=== PATIENT | female | born 1975 | race Caucasian/White ===

== ENCOUNTER → 2020-06-02 18:35 | Outpatient (CLI) | payer BC, SELFPAY ==
[2020-06-02 18:58] LABS: Basophils # 0.1 K/mm3 (0-0.2); Basophils % 0.5 % (0.1-2.0); Eosinophils # 0.1 K/mm3 (0.0-0.4); Eosinophils % 0.9 % (0.1-12.0); Hematocrit 47.8 % (37.0-47.0); Hemoglobin 15.3 g/dL (12.2-16.2); Lymphocytes % 35.3 % (10-50); Mean Corpuscular HGB Conc 32.1 g/dL (31.8-35.4); Mean Corpuscular Hemoglobin 27.3 pg (27.0-31.2); Mean Corpuscular Volume 84.9 fl (81-99); Mean Platelet Volume 8.1 fl (7.4-10.4); Monocytes # 0.2 K/mm3 (0.1-1.0); Monocytes % 2.6 % (1.7-9.3); Neutrophils # 5.1 K/mm3 (1.8-7.8); Neutrophils % 60.7 % (37.0-80.0); Platelet Count 382 K/mm3 (142-424); Red Blood Count 5.63 M/mm3 (4.20-5.40); Red Cell Distribution Width 13.8 % (11.5-17.5); White Blood Count 8.5 K/mm3 (4.8-10.8)
[2020-06-02 19:13] LABS: Alanine Aminotransferase 21 U/L (12-78); Albumin Level 4.6 g/dl (3.5-5.0); Albumin/Globulin Ratio 1.6 (1.1-1.8); Alkaline Phosphatase 98 U/L (38-126); Anion Gap 13.8 mEq/L (5-15); Aspartate Amino Transferase 26 U/L (14-36); Bilirubin,Total 0.6 mg/dl (0.2-1.3); Blood Urea Nitrogen 12 mg/dl (7-17); Calcium 9.7 mg/dl (8.4-10.2); Carbon Dioxide 27 mmol/L (22.0-30.0); Chloride 102 mmol/L (98-107); Chol/HDL Ratio 4.4 (1-3.5); Cholesterol 180 mg/dl (140-200); Estimated Glomerular Filt Rate 78 ml/min (>60); GFR (African American) 95 ML/MIN (>60); Globulin 2.8 g/dL (1.3-3.2); Glucose 124 mg/dl (74-100); HDL Cholesterol 41 mg/dl (40-60); Potassium 3.8 mmoL/L (3.5-5.1); Sodium 139 mmol/L (136-145); Total Protein,Serum 7.4 g/dl (6.3-8.2); Triglycerides 154 mg/dl (30-150); VLDL Cholesterol 31 mg/dL (0-40)
[2020-06-02 19:29] LABS: 25-OH Vitamin D, Total 18.4 ng/mL (30-100)
[2020-06-02 19:43] LABS: Thyroid Stimulating Hormone 0.58 uIU/mL (0.465-4.68)
== END ==
PROVIDERS: Visit Provider Emergency Medicine
DX: Z00.00 Encounter for general adult medical examination without abnormal findings (principal); R53.83 Other fatigue; E55.9 Vitamin D deficiency, unspecified; Z72.0 Tobacco use; Z79.899 Other long term (current) drug therapy
CPT/HCPCS: 80053; 80061; 82306; 84436; 84443; 85025

== ENCOUNTER → 2020-07-05 09:44 | Outpatient (CLI) | payer BC, SELFPAY | PROVIDERS: PCP Emergency Medicine; Visit Provider Emergency Medicine | DX: Z20.822 Contact with and (suspected) exposure to COVID-19 (principal); U07.1 COVID-19 | CPT/HCPCS: U0003 ==

== ENCOUNTER → 2020-07-05 14:04 | Outpatient (CLI) | payer BC, SELFPAY | PROVIDERS: Visit Provider Emergency Medicine | DX: R11.2 Nausea with vomiting, unspecified (principal) ==

== ENCOUNTER → 2020-09-19 13:40 | Outpatient (CLI) | payer SELFPAY ==
[2020-09-19 14:35] LABS: Amphetamine/Metha Screen,Urine Negative ng/ml (<1000); Barbiturates Screen,Urine Negative ng/ml (<200)
[2020-09-19 14:36] LABS: Benzodiazepines Screen,Urine Negative ng/ml (<200)
[2020-09-19 14:37] LABS: Cannabinoid Screen,Urine Negative ng/ml (<50); Cocaine Screen,Urine Negative ng/ml (<300)
[2020-09-19 14:38] LABS: Methadone Screen,Urine Negative ng/ml (<300)
[2020-09-19 14:41] LABS: Opiate Screen,Urine Negative ng/ml (<300)
[2020-09-19 14:42] LABS: Phencyclidine Screen,Urine Negative ng/ml (<25)
== END ==
PROVIDERS: Visit Provider Emergency Medicine
DX: Z79.899 Other long term (current) drug therapy (principal)
CPT/HCPCS: 80305

== ENCOUNTER 2021-01-16 09:38 | Emergency (ER) | payer BC, SELFPAY ==
[2021-01-16 09:39] VITALS: BP 114/58; PULSE 77; RESP 16; TEMP 36.8; O2SAT 100; BMI 35.7
--- NOTE | 2021-01-16 09:41 | CT_ITS ---
PROCEDURE: CT ANGIO HEAD CLINICAL INDICATION: headache COMPARISON: CT CT HEAD/BRAIN WO CON from 01/16/2021 TECHNIQUE: IV Contrast: 100ML Isovue [address] brain followed by CT angiography of the head with multiplanar, MIP, and 3D reformations. All measurements of carotid stenosis are performed according to NASCET criteria. Dose modulation, automated exposure control, and/or iterative reconstruction were used for dose reduction. FINDINGS: There is no space-occupying mass or abnormal enhancement.There is no evidence of hemorrhage. Anterior Circulation: Both supraclinoid ICAs bifurcate into normal anterior and middle cerebral arteries without any significant stenosis, aneurysm, or other abnormality. Anterior additional: Posterior circulation: Both vertebral arteries form a normal caliber basilar trunk that proceeds to terminate in paired superior cerebellar and posterior cerebral arteries bilaterally without any significant stenosis, aneurysm, or other abnormality. Posterior additional: Venous: The major intracranial venous structures enhance normally. There is a small filling defect within the left transverse sinus at the junction of the sigmoid sinus and may be related to an arachnoid granulation. This filling defect is smooth measuring 6 mm not typical for thrombus. No other significant findings are noted. IMPRESSION: Negative CTA of the brain. Small filling defect in the transverse sinus on the left distally and may be due to an arachnoid granulation Dictated by: Rudolph Umaña MD 01/16/2021 10:35 Rudolph Umaña MD in [facility] 01/16/2021 10:35
--- NOTE | 2021-01-16 09:41 | CT_ITS ---
PROCEDURE: CT HEAD/BRAIN WO CON CLINICAL INDICATION: headache Severe headache COMPARISON: No exams were available for comparison TECHNIQUE: Axial images obtained. All CT scans at the facility use one or more dose reduction, viz: automated exposure control, ma/kV adjustment per patient size (including targeted exams where dose is matched to indication, i.e. head), or iterative reconstruction technique. FINDINGS: No midline shift, mass effect, intracranial hemorrhage, hydrocephalus, or extra-axial fluid collection is evident. The calvarium has an unremarkable appearance. No mastoid effusion. No sinus air-fluid level. IMPRESSION: No acute intracranial finding Dictated by: Rudolph Umaña MD 01/16/2021 10:23 Rudolph Umaña MD in [facility] 01/16/2021 10:23
--- NOTE | 2021-01-16 09:41 | CT_ITS ---
PROCEDURE: CT ANGIO NECK CLINICAL INDICATION: headache COMPARISON: No exams were available for comparison TECHNIQUE: CT angiography of the neck with multiplanar and 3D MIP reformations. Dose modulation, automated exposure control, and/or iterative reconstruction were used for dose reduction. All measurements of carotid stenosis are performed according to NASCET criteria. Contrast: 100ml Isouve 370. FINDINGS: AORTIC ARCH: Arch Anatomy: There is a normal branching anatomy of the aortic arch. Carotid Arteries: Carotid: The common carotid and cervical internal carotid arteries are patent and unremarkable without any significant stenosis or other abnormality. Vertebral Arteries: Both vertebral arteries are patent and unremarkable throughout their cervical portions, without any significant stenosis or other abnormality Lungs: The visualized lung apices are clear.</choice><choice name= emphysema >Emphysematous changes are present at the lung apices. Thyroid: The visualized thyroid gland is unremarkable. Bones: The cervical spine is unremarkable. There are few scattered cervical lymph nodes. IMPRESSION: Negative CTA of the neck. Dictated by: Rudolph Umaña MD 01/16/2021 10:28 Rudolph Umaña MD in [facility] 01/16/2021 10:28
--- NOTE | 2021-01-16 10:00 | PC.NURSE ---
PT TO CT
--- NOTE | 2021-01-16 10:07 | [facility].EDGENADL ---
ED Disposition Clinical Impression: Occipital headache Migraine Qualifiers: Migraine type: unspecified Status migrainosus presence: without status migrainosus Intractability: not intractable Qualified Code(s): G43.909 - Migraine, unspecified, not intractable, without status migrainosus Disposition: Home, Self-Care Condition on Discharge: Good Instructions: DI for Migraine, DI for Occipital Neuralgia Additional Instructions: You have been evaluated for posterior headache, likely due to migraine. Take all medications as prescribed. Avoid changes in sleep, diet. please follow-up with your primary care doctor within 1 to 2 days for symptom recheck. Return to the emergency department at once for any new or worsening symptoms. Referrals: Dickson Viera MD [Primary Care Provider] - Time of Disposition: 13:05 - Critical Care Critical Care Time: No Attestation: On 01/16/21, the high probability of a clinically significant, sudden or life threatening deterioration of the following system(s) required my full and direct attention, intervention and personal management. The time I documented below is in addition to time spent performing reported procedures but includes the following listed in this critical care notation. Medical Decision Making - Medical Records Medical records reviewed: Yes: I reviewed the patient's medical records. - Steven Inquiry Pt receiving controlled substance: No Vital Signs: 01/16/21 09:39 01/16/21 10:49 01/16/21 10:50 Temperature 98.3 F Temperature Source Oral Pulse Rate 71 77 Pulse Rate [Right] 77 Respiratory Rate 16 Blood Pressure 102/65 L Blood Pressure [Right Arm] 114/58 L Blood Pressure Mean 75 Blood Pressure Mean [Right Arm] 76 02 Sat by Pulse Oximetry 100 98 99 Oxygen Delivery Method Room Air - Lab Data Lab Results 01/16/21 10:00: WBC 6.9, RBC 5.54 H, Hgb 14.9, Hct 46.3, MCV 83.7, MCH 27.0, MCHC 32.2, RDW 13.2, Plt Count 323, MPV 7.8, Neut % (Auto) 58.6, Lymph % (Auto) 34.2, [place] % (Auto) 4.1, Eos % (Auto) 1.4, Baso % (Auto) 1.7, Neut # (Auto) 4.0, Lymph # (Auto) 2.4, [place] # (Auto) 0.3, Eos # (Auto) 0.1, Baso # (Auto) 0.1, ESR 16 01/16/21 10:00: Sodium 141, Potassium 4.2, Chloride 106, Carbon Dioxide 27, Anion Gap 12.2, BUN 15, Creatinine 0.80, Estimated Creat Clear 114, Estimated GFR 78, Est GFR ( Amer) 94, Glucose 95, Calcium 9.3, Total Bilirubin 0.6, AST 28, ALT 21, Alkaline Phosphatase 108, C-Reactive Protein 6.1 H, Total Protein 7.2, Albumin 4.4, Globulin 2.8, Albumin/Globulin Ratio 1.6 Result diagrams: 01/16/21 10:00 01/16/21 10:00 Orders (Tests/Meds): ED MEDICATIONS Generic Name Dose Route Start Last Admin Trade Name Freq PRN Reason Stop Dose Admin Sodium Chloride 10 ml 01/16/21 11:16 Sodium Chloride 0.9% 10ml Vial IV 02/15/21 11:15 NEEDED PRN to Dilute Lorazepam inj Discontinued Medications Generic Name Dose Route Start Last Admin Trade Name Freq PRN Reason Stop Dose Admin Dexamethasone Sodium Phosphate 10 mg 01/16/21 10:24 01/16/21 10:44 Dexamethasone 4mg/Ml 1ml Vial IV 01/16/21 10:25 10 mg ONCE ONE Administration Hydroxyzine Pamoate 25 mg 01/16/21 10:52 01/16/21 10:59 Hydroxyzine Pamoate 25mg Capsule PO 01/16/21 10:53 25 mg ONCE ONE Administration Iopamidol 100 ml 01/16/21 10:14 01/16/21 10:15 Iopamidol-370 (76%);100ml Bottle IV 01/16/21 10:15 100 ml ONCE ONE Administration Lorazepam 0.5 mg 01/16/21 11:16 01/16/21 11:35 Lorazepam 2mg/Ml Vial IV 01/16/21 11:17 0.5 mg ONCE ONE Administration Sodium Chloride 10 ml 01/16/21 10:14 01/16/21 10:15 Sodium Chloride 0.9% 10ml Syr (Rad Only) IV 01/16/21 10:15 10 ml ONCE ONE Administration Sodium Chloride 40 ml 01/16/21 10:14 01/16/21 10:15 0.9 % Sodium Chloride 50 Ml Vial IV 01/16/21 10:15 40 ml ONCE ONE Administration - CT Data CT Scan: Head Time Received: 10:[address] Reviewed: Yes:
[2021-01-16 10:08] LABS: Basophils # 0.1 K/mm3 (0-0.2); Basophils % 1.7 % (0.1-2.0); Eosinophils # 0.1 K/mm3 (0.0-0.4); Eosinophils % 1.4 % (0.1-12.0); Hematocrit 46.3 % (37.0-47.0); Hemoglobin 14.9 g/dL (12.2-16.2); Lymphocytes # 2.4 K/mm3 (0.7-4.5); Lymphocytes % 34.2 % (10-50); Mean Corpuscular HGB Conc 32.2 g/dL (31.8-35.4); Mean Corpuscular Volume 83.7 fl (81-99); Mean Platelet Volume 7.8 fl (7.4-10.4); Monocytes # 0.3 K/mm3 (0.1-1.0); Monocytes % 4.1 % (1.7-9.3); Neutrophils % 58.6 % (37.0-80.0); Platelet Count 323 K/mm3 (142-424); Red Blood Count 5.54 M/mm3 (4.20-5.40); Red Cell Distribution Width 13.2 % (11.5-17.5); White Blood Count 6.9 K/mm3 (4.8-10.8)
[2021-01-16 10:17] LABS: Chloride 106 mmol/L (98-107); Potassium 4.2 mmoL/L (3.5-5.1); Sodium 141 mmol/L (136-145)
[2021-01-16 10:19] LABS: Blood Urea Nitrogen 15 mg/dl (7-17); Creatinine Clearance Estimated 114 mL/min (50-200); Estimated Glomerular Filt Rate 78 ml/min (>60); GFR (African American) 94 ML/MIN (>60)
[2021-01-16 10:20] LABS: Alanine Aminotransferase 21 U/L (12-78); Albumin Level 4.4 g/dl (3.5-5.0); Albumin/Globulin Ratio 1.6 (1.1-1.8); Alkaline Phosphatase 108 U/L (38-126); Anion Gap 12.2 mEq/L (5-15); Aspartate Amino Transferase 28 U/L (14-36); Bilirubin,Total 0.6 mg/dl (0.2-1.3); Calcium 9.3 mg/dl (8.4-10.2); Carbon Dioxide 27 mmol/L (22.0-30.0); Globulin 2.8 g/dL (1.3-3.2); Glucose 95 mg/dl (74-100); Total Protein,Serum 7.2 g/dl (6.3-8.2)
[2021-01-16 10:25] LABS: C-Reactive Protein 6.1 mg/L (0-4)
[2021-01-16 10:35] LABS: Erythrocyte Sedimentation Rate 16 mm/hr (0-20)
--- NOTE | 2021-01-16 10:45 | MR_ITS ---
PROCEDURE: MR HEAD/BRAIN WO CON CLINICAL INDICATION: headache Posterior left-sided headache with dizziness COMPARISON: CT CT ANGIO HEAD from 01/16/[address] HEAD/BRAIN WO CON from 01/16/2021 TECHNIQUE: Routine multiplanar multi echo sequences are performed without gadolinium enhancement. FINDINGS: No midline shift, mass effect, intracranial hemorrhage, or hydrocephalus is evident. No evidence of acute infarction. No restricted diffusion. No venous infarcts apparent. The cerebellopontine angles, cerebellum, and brainstem have an unremarkable appearance. The pituitary, optic chiasm, corpus callosum, the and craniocervical junction are unremarkable. IMPRESSION: Negative unenhanced MRI of the brain, no acute finding Dictated by: Rudolph Umaña MD 01/16/2021 12:21 Rudolph Umaña MD in [facility] 01/16/2021 12:21
--- NOTE | 2021-01-16 10:46 | PC.NURSE ---
contacted MRI per ER MD request for pt to have MRI. Spoke with Rosette, states she is going to come on down and get pt.
[2021-01-16 10:49] VITALS: PULSE 71; O2SAT 98
[2021-01-16 10:50] VITALS: BP 102/65; PULSE 77; O2SAT 99
--- NOTE | 2021-01-16 11:01 | PC.NURSE ---
PT TO MRI
--- NOTE | 2021-01-16 12:15 | PC.NURSE ---
pt return from MRI
[2021-01-16 13:18] VITALS: BP 128/80; PULSE 82; RESP 14; TEMP 36.7; O2SAT 99
== END 2021-01-16 13:19 | disposition home or self-care (01) ==
PROVIDERS: Emergency Provider Emergency Medicine; PCP Emergency Medicine
DX: G43.909 Migraine, unspecified, not intractable, without status migrainosus (principal); F41.9 Anxiety disorder, unspecified
CPT/HCPCS: 70450; 70496; 70498; 70551; 80053; 85025; 85651; 86140; 96374; 96375; 99282; Q9967

== ENCOUNTER → 2021-01-16 15:23 | Outpatient (CLI) | payer BC, SELFPAY ==
[2021-01-16 15:51] LABS: Barbiturates Screen,Urine Negative ng/ml (<200); Benzodiazepines Screen,Urine Negative ng/ml (<200)
[2021-01-16 15:52] LABS: Amphetamine/Metha Screen,Urine Negative ng/ml (<1000)
[2021-01-16 15:53] LABS: Cannabinoid Screen,Urine Negative ng/ml (<50); Methadone Screen,Urine Negative ng/ml (<300)
[2021-01-16 15:54] LABS: Cocaine Screen,Urine Negative ng/ml (<300)
[2021-01-16 15:55] LABS: Opiate Screen,Urine Negative ng/ml (<300)
[2021-01-16 15:56] LABS: Phencyclidine Screen,Urine Negative ng/ml (<25)
== END ==
PROVIDERS: Visit Provider Emergency Medicine
DX: Z79.899 Other long term (current) drug therapy (principal)
CPT/HCPCS: 80305

== ENCOUNTER → 2021-04-23 15:50 | Outpatient (CLI) | payer BC, SELFPAY ==
[2021-04-23 16:47] LABS: HCG,Quantitative 10 mIU/ml (0-5.42)
== END ==
PROVIDERS: Visit Provider Family Medicine
DX: E34.9 Endocrine disorder, unspecified (principal); Z32.00 Encounter for pregnancy test, result unknown
CPT/HCPCS: 84702

== ENCOUNTER → 2021-04-24 07:41 | Outpatient (CLI) | payer BC, SELFPAY ==
[2021-04-24 09:27] LABS: Thyroid Stimulating Hormone 1.52 uIU/mL (0.465-4.68)
[2021-04-25 08:17] LABS: FSH 86.7 mIU/mL (.)
== END ==
PROVIDERS: Visit Provider Family Medicine
DX: E34.9 Endocrine disorder, unspecified (principal)
CPT/HCPCS: 36415; 83001; 83002; 84443

== ENCOUNTER → 2021-05-12 08:07 | Outpatient (CLI) | payer BC, SELFPAY ==
--- NOTE | 2021-05-12 08:08 | MR_ITS ---
PROCEDURE INFORMATION: Exam: MR Head Without and With Contrast Exam date and time: 05/12/2021 8:08 AM Age: 45 years old Clinical indication: Pain; Headache; Patient HX: Elevated hcg levels; Additional info: Endocrine disorder TECHNIQUE: Imaging protocol: MR of the head without and with intravenous contrast. Contrast material: ISOVUE; Contrast volume: 16 ml; Contrast route: IV; COMPARISON: MR HEAD/BRAIN WO CON 01/16/2021 11:10 AM FINDINGS: Brain: There is no evidence of acute territorial infarction, hemorrhage, mass, mass effect, or midline shift. There are no abnormal intra-axial or extra-axial fluid collections. Cerebral ventricles: Normal. No ventriculomegaly. Pituitary gland and sella: High-resolution images through the sella turcica show no evidence of discrete mass or signal abnormality. Dynamic gadolinium enhanced images through the sella show no foci of decreased enhancement. The infundibulum is in the midline. There is no evidence of optic nerve or optic chiasm compression. Cavernous internal carotid artery flow voids are intact. There is no evidence of cavernous sinus invasion. Bones/joints: Unremarkable. Paranasal sinuses: Unremarkable. No fluid levels. Mastoid air cells: Normal as visualized. No mastoid effusion. Orbital cavity: See Pituitary gland and sella finding. Soft tissues: Unremarkable. IMPRESSION: 1. No acute findings. 2. Normal appearing pituitary gland.
== END ==
PROVIDERS: PCP Family Medicine; Visit Provider Family Medicine
DX: E34.9 Endocrine disorder, unspecified (principal)
CPT/HCPCS: 70553; A9576

== ENCOUNTER 2021-05-20 09:52 | Emergency (ER) | payer BC, SELFPAY ==
[2021-05-20 09:54] VITALS: BP 135/86; PULSE 84; RESP 18; TEMP 36.8; O2SAT 99; BMI 36.3
--- NOTE | 2021-05-20 10:14 | CT_ITS ---
PROCEDURE INFORMATION: Exam: CT Abdomen And Pelvis With Contrast Exam date and time: 05/20/2021 10:14 AM Age: 45 years old Clinical indication: Abdominal tenderness; Additional info: Abdominal pain TECHNIQUE: Imaging protocol: Computed tomography of the abdomen and pelvis with contrast. Radiation optimization: All CT scans at this facility use at least one of these dose optimization techniques: automated exposure control; mA and/or kV adjustment per patient size (includes targeted exams where dose is matched to clinical indication); or iterative reconstruction. Contrast material: ISOVUE; Contrast volume: 75 ml; Contrast route: IV; COMPARISON: No relevant prior studies available. FINDINGS: Liver: Normal. No mass. Gallbladder and bile ducts: Cholecystectomy. Pancreas: Normal. No ductal dilation. Spleen: Normal. No splenomegaly. Adrenal glands: Normal. No mass. Kidneys and ureters: Normal. No hydronephrosis. Stomach and bowel: Unremarkable. No obstruction. No mucosal thickening. Appendix: Apparent appendectomy. Intraperitoneal space: Unremarkable. No free air. No significant fluid collection. Vasculature: Unremarkable. No abdominal aortic aneurysm. Lymph nodes: Unremarkable. No enlarged lymph nodes. Urinary bladder: Unremarkable as visualized. Reproductive: Unremarkable as visualized. Bones/joints: Unremarkable. No acute fracture. Soft tissues: Unremarkable. Other findings: No obstruction, abscess, or visualized inflammatory change. No other acute disease seen. As above. IMPRESSION: 1. No obstruction, abscess, or visualized inflammatory change. 2. No other acute disease seen. As above.
[2021-05-20 11:38] LABS: Basophils # 0.2 K/mm3 (0-0.2); Basophils % 2.6 % (0.1-2.0); Eosinophils # 0.1 K/mm3 (0.0-0.4); Eosinophils % 1.2 % (0.1-12.0); Hematocrit 43.3 % (37.0-47.0); Hemoglobin 14.1 g/dL (12.2-16.2); Lymphocytes # 2.5 K/mm3 (0.7-4.5); Lymphocytes % 31.6 % (10-50); Mean Corpuscular HGB Conc 32.5 g/dL (31.8-35.4); Mean Corpuscular Hemoglobin 27.1 pg (27.0-31.2); Mean Corpuscular Volume 83.5 fl (81-99); Mean Platelet Volume 7.9 fl (7.4-10.4); Monocytes # 0.4 K/mm3 (0.1-1.0); Monocytes % 5.3 % (1.7-9.3); Neutrophils # 4.6 K/mm3 (1.8-7.8); Neutrophils % 59.3 % (37.0-80.0); Platelet Count 323 K/mm3 (142-424); Red Blood Count 5.19 M/mm3 (4.20-5.40); Red Cell Distribution Width 13.8 % (11.5-17.5); White Blood Count 7.8 K/mm3 (4.8-10.8)
[2021-05-20 11:46] LABS: Chloride 106 mmol/L (98-107); Sodium 139 mmol/L (136-145)
[2021-05-20 11:48] LABS: Blood Urea Nitrogen 10 mg/dl (7-17); Creatinine Clearance Estimated 154 mL/min (50-200); Estimated Glomerular Filt Rate 109 ml/min (>60); GFR (African American) 131 ML/MIN (>60)
[2021-05-20 11:49] LABS: Alanine Aminotransferase 55 U/L (12-78); Albumin Level 4.2 g/dl (3.5-5.0); Albumin/Globulin Ratio 1.7 (1.1-1.8); Alkaline Phosphatase 105 U/L (38-126); Aspartate Amino Transferase 55 U/L (14-36); Bilirubin,Total 0.4 mg/dl (0.2-1.3); Calcium 8.9 mg/dl (8.4-10.2); Carbon Dioxide 28 mmol/L (22.0-30.0); Globulin 2.5 g/dL (1.3-3.2); Glucose 92 mg/dl (74-100); Lipase 106 U/L (23-300); Total Protein,Serum 6.7 g/dl (6.3-8.2)
[2021-05-20 12:06] LABS: HCG,Quantitative 11 mIU/ml (0-5.42)
[2021-05-20 12:21] LABS: Thyroid Stimulating Hormone 1.53 uIU/mL (0.465-4.68)
--- NOTE | 2021-05-20 12:51 | [facility].EDGENADL ---
ED Disposition Clinical Impression: Elevated serum hCG in female, not Disposition: Home, Self-Care Condition on Discharge: Fair Referrals: Dickson Viera MD [Primary Care Provider] - - Critical Care Critical Care Time: No Attestation: On 05/20/21, the high probability of a clinically significant, sudden or life threatening deterioration of the following system(s) required my full and direct attention, intervention and personal management. The time I documented below is in addition to time spent performing reported procedures but includes the following listed in this critical care notation. Medical Decision Making - Medical Records Medical records reviewed: Yes: I reviewed the patient's medical records. - Steven Inquiry Pt receiving controlled substance: No Steven was queried for this patient: No Vital Signs: 05/20/21 09:54 Temperature 98.3 F Temperature Source Oral Pulse Rate [Left Radial] 84 Respiratory Rate 18 Blood Pressure [Right Arm] 135/86 Blood Pressure Mean [Right Arm] 102 Blood Pressure Source [Right Arm] Automatic Cuff Blood Pressure Position [Right Arm] Sitting 02 Sat by Pulse Oximetry 99 Oxygen Delivery Method Room Air - Lab Data Lab results reviewed: Yes: I reviewed the patient's lab results. Lab Results 05/20/21 11:30: WBC 7.8, RBC 5.19, Hgb 14.1, Hct 43.3, MCV 83.5, MCH 27.1, MCHC 32.5, RDW 13.8, Plt Count 323, MPV 7.9, Neut % (Auto) 59.3, Lymph % (Auto) 31.6, [place] % (Auto) 5.3, Eos % (Auto) 1.2, Baso % (Auto) 2.6 H, Neut # (Auto) 4.6, Lymph # (Auto) 2.5, [place] # (Auto) 0.4, Eos # (Auto) 0.1, Baso # (Auto) 0.2 05/20/21 11:30: Sodium 139, Potassium 4.0, Chloride 106, Carbon Dioxide 28, Anion Gap 9.0, BUN 10, Creatinine 0.60, Estimated Creat Clear 154, Estimated GFR 109, Est GFR ( Amer) 131, Glucose 92, Calcium 8.9, Total Bilirubin 0.4, AST 55 H, ALT 55, Alkaline Phosphatase 105, Total Protein 6.7, Albumin 4.2, Globulin 2.5, Albumin/Globulin Ratio 1.7, Lipase 106, TSH 1.53, HCG, Quant 11 H Result diagrams: 05/20/21 11:30 05/20/21 11:30 Orders (Tests/Meds): ED MEDICATIONS Discontinued Medications Generic Name Dose Route Start Last Admin Trade Name Sergei PRN Reason Stop Dose Admin Iopamidol 75 ml 05/20/21 12:04 05/20/21 12:05 Iopamidol-370 (76%);100ml Bottle IV 05/20/21 12:05 75 ml ONCE ONE Administration Sodium Chloride 10 ml 05/20/21 12:04 05/20/21 12:05 Sodium Chloride 0.9% 10ml Syr (Rad Only) IV 05/20/21 12:05 10 ml ONCE ONE Administration ORDERS Category Date Time Status Lactic Acid Stat Lab 05/20/21 10:14 Ordered Medical Decision Narrative: Is a 45-year-old female with no past medical history presenting to the ED with concerns of nausea. Patient is awake, alert, not in acute distress. Patient is currently stable, afebrile. Patient's physical exam is remarkable for a soft nondistended nontender abdomen. Patient was complaining of breast pain therefore a breast exam was performed which was remarkable for mild tenderness to palpation of the left breast, no discharge could be expressed, overlying erythema, induration, fluctuance noted. Extensive work-up including lab work-up, CT abdomen pelvis was performed all of which was negative. Patient already had a brain MRI to look for a pituitary cause of patient's elevated beta beta-hCG. This point patient is to follow-up with her primary care physician for further work-up. General Adult HPI - General Chief complaint: Recheck/Abnormal Lab/Rx Stated complaint: symptoms of Time Seen by Provider: 05/20/21 12:51 Mode of Arrival: Ambulatory Limitations: No Limitations Description of Symptoms (Recalled from ER Triage Doc. by RN): c/o nausea in the morning and with certain smells, some lower abdomen cramping, like menstrual cramps, states that her hcg hormone is elevated but no one can tell her why or why she is having symptoms since she had a hysterectomy 10
[2021-05-20 13:13] VITALS: BP 128/82; PULSE 86; RESP 19; TEMP 36.8; O2SAT 99
== END 2021-05-20 13:14 | disposition home or self-care (01) ==
PROVIDERS: Emergency Provider Emergency Medicine; PCP Emergency Medicine
DX: E34.9 Endocrine disorder, unspecified (principal); Z32.02 Encounter for pregnancy test, result negative; F41.9 Anxiety disorder, unspecified; Z87.891 Personal history of nicotine dependence
CPT/HCPCS: 74177; 80053; 83690; 84443; 84702; 85025; 99283; Q9967